=== PATIENT | male | born 1940 | race Caucasian/White ===

== ENCOUNTER 2020-05-01 08:22 | Day surgery (SDC) | payer OTHER, BC ==
--- NOTE | 2020-04-27 14:38 | RAD REPORT ---
EXAM DESCRIPTION: RAD - Chest Pa And Lat (2 Views) - 04/27/2020 2:28 pm CLINICAL HISTORY: PREop Chest pain. COMPARISON: <Comparisons> FINDINGS: The lungs are clear. The heart is normal in size. No displaced fractures. Dual lead pacer device is present. IMPRESSION: No acute or concerning finding suspected.
[2020-04-27 15:38] LABS: Absolute Lymphocytes (CBC) 1.7 K/uL (0.7-4.9); Basophils % 0.3 % (0-1.3); Hematocrit 45.6 % (39.6-49.0); Lymphocytes % 19.7 % (15.3-44.8); MPV 9.1 fL (7.6-11.3); RBC Red Blood Cell Count 5.13 M/uL (4.33-5.43)
[2020-04-27 15:51] LABS: Protime INR 1.03
[~2020-05-01 08:22] MED LIST: ATROPINE SULF 1 MG/10 ML SYR IV ONE; FENTANYL CITR 100 MCG/2 ML ONE; HEPA 1000U/500MLS 1,000 UNIT/500 ML BAG IV ONE; LIDOCAINE 1% 20 ML MDV ONE; MIDAZOLAM HCL 2 MG/2 ML INJ ONE; NA CHLORIDE 0.9% 0 ML ONE; NA CHLORIDE 0.9% 500 ML ONE
--- NOTE | 2020-05-01 08:59 | OP ---
Surgeon: Jose Edgar MD Purification Operator Helper: Mr. Gold. Procedures: Left heart catheterization, selective coronary arteriogram, selective bilateral carotid angiogram. Indication: CAD status post stent, abnormal stress test, abnormal carotid Doppler. Procedure In Detail: The patient was brought to the lab manager as an outpatient, prepped and draped in routine sterile fashion. Given Versed and fentanyl for sedation. A 6-Gambian sheath was introduced in the right common femoral artery successfully using the Seldinger technique and 10 cc of Xylocaine. JL4 catheter was used to cannulate the left main. The left main was normal with a 70% diagonal carey nosis, patent proximal LAD stent, normal circumflex and OM. He was codominant. A JR4 catheter was u sed to select the right coronary artery, which showed a 70% to 80% long proximal RCA. The RCA cathet er was also used to select the right common carotid and the left common carotid artery. The left com mon carotid artery was normal. The left external and internal carotid artery were normal. On the ri ght side, however, he had a 90% right ICA stenosis. The external carotid and the right common caroti d were normal. There were no complications. Blood Loss: 5 mL. Anesthesia: Total conscious sedation was 45 minutes. Postoperative Diagnosis: Severe coronary artery disease, severe cerebrovascular disease. Plan: For right carotid endarterectomy first, and then after that, we will stage him for an RCA sten t later. The patient had an Angio-Seal to close the right groin entry site. He will be at bedrest for 2 hours and go home and I will make arrangements for followup for his carotid surgery. SCD will be given to him. REESE/RUCHI Voice ID: [id number] Report ID: [id number]
[2020-05-01 09:06] VITALS: O2SAT 97
[2020-05-01 11:52] VITALS: BP 156/75; TEMP 97.1
== END 2020-05-01 10:10 | disposition home or self-care (01) ==
LOC: CCL 08:22
DX: I25.10 Atherosclerotic heart disease of native coronary artery without angina pectoris (principal); I65.21 Occlusion and stenosis of right carotid artery; I70.213 Atherosclerosis of native arteries of extremities with intermittent claudication, bilateral legs; E78.2 Mixed hyperlipidemia; E66.9 Obesity, unspecified; Z68.34 Body mass index [BMI] 34.0-34.9, adult; Z95.5 Presence of coronary angioplasty implant and graft; Z95.0 Presence of cardiac pacemaker; Z87.891 Personal history of nicotine dependence; Z79.82 Long term (current) use of aspirin; Z88.0 Allergy status to penicillin; Z20.822 Contact with and (suspected) exposure to COVID-19
CPT/HCPCS: 93005; 85025; 80048; 36415; 85610; 85730; 71046; 93454; 36222; U0002; C1893; C1760; J2250; J3010; J7040; J1644; J0583

== ENCOUNTER 2023-12-02 14:28 | Observation (INO) | payer OTHER, BC ==
[2023-12-02 15:08] LABS: Absolute Eosinophils 0.1 K/uL (0-0.5); Absolute Lymphocytes (CBC) 1.8 K/uL (0.7-4.9); Absolute Neutrophil 5.8 K/uL (1.8-8.0); Basophils % 0.2 % (0-1.3); Eosinophils % 0.6 % (0-4.4); Hematocrit 46.8 % (39.6-49.0); Hemoglobin 15.4 g/dL (13.6-17.9); MCH 29.9 pg (27.0-35.0); MCHC 32.9 g/dL (32.0-36.0); MCV 90.8 fL (80-100); MPV 8.2 fL (7.6-11.3); Monocytes % 11.6 % (3.3-12.3); Neutrophils % 66.6 % (41.7-73.7); Platelets 186 thou/uL (152-406); RBC Red Blood Cell Count 5.15 M/uL (4.33-5.43)
[2023-12-02 15:15] LABS: PT Prothrombin Time 12.1 SECONDS (9.4-12.5); Protime INR 1.08
[2023-12-02 15:27] LABS: Anion Gap 9.9 mEq/L (5.0-15.0); Magnesium 2.1 mg/dL (1.6-2.4); Potassium 3.9 mEq/L (3.5-5.1); Troponin High Sensitivity 23.8 pg/mL (<58.9)
--- NOTE | 2023-12-02 16:05 | RAD REPORT ---
EXAMINATION: ONE VIEW CHEST XR CLINICAL INDICATION: Male, 83 years old.,fatigue TECHNIQUE: Frontal chest projection is submitted. Examination is limited by patient positioning and t echnique. COMPARISON: 04/27/2020 FINDINGS: The lungs are well inflated and clear. No pneumothorax or sizable effusion. The heart is normal in s ize. Left chest wall pacer in place. IMPRESSION: No acute intrathoracic abnormalities.
--- NOTE | 2023-12-02 16:29 | EDPHYS ---
Physician Documentation [facility] Name: Warner Cantrell Age: 83 yrs Sex: Male : 1940 Arrival Date: 12/02/2023 Time: 14:28 Bed 3 Private MD: ED Physician Mirza Douglas HPI: 12/01 14:54 This 83 yrs old Male presents to ER via Unassigned with complaints of low pulse, ms3 Dizziness. 14:54 83-year-old male presents to the emergency department for fatigue, lightheadedness. ms3 Patient states his heart rate was found to be in the 30s at home. He denies nausea, vomiting, shortness of breath. He denies any alleviating or inciting factors. Historical: - Allergies: 15:20 PENICILLINS; iw - Home Meds: 15:14 Livalo 1 mg oral tablet daily [Active]; ranolazine 500 mg oral Tablet, Extended Release iw 12 hr 0.5 tab daily [Active]; - PSHx: 15:15 pacemaker; iw ROS: 14:54 Cardiovascular: Negative for chest pain, and palpitations. Respiratory: Negative for ms3 shortness of breath, cough, wheezing, and pleuritic chest pain, Abdomen/GI: Negative for abdominal pain, nausea, vomiting, diarrhea, and constipation, 14:54 Constitutional: Negative for fever, and chills. Skin: Negative for injury, rash, and discoloration, Exam: 14:54 Constitutional: This is a well developed, well nourished patient who is awake, alert, ms3 and in no acute distress. Head/Face: Normocephalic, atraumatic. Chest/axilla: Normal chest wall appearance and motion. Nontender with no deformity. 14:54 Cardiovascular: Rate: normal, Rhythm: irregularly irregular, Pulses: no pulse deficits are appreciated, Heart sounds: normal, normal S1and S2, 14:56 ECG was reviewed by the Attending Physician. ms3 Vital Signs: 15:06 BP 148 / 90; Pulse 86; Resp 16; Temp 98; Pulse Ox 97% on R/A; iw 16:15 Pulse 74; Resp 18; Pulse Ox 97% on R/A; Pain 0/10; ss 16:15 Pain Scale: Adult ss MDM: 14:54 Differential diagnosis: cardiac arrhythmia, Electrolyte abnormality versus myocardial ms3 infarction. 14:56 Patient medically screened. ms3 16:29 Data reviewed: vital signs, nurses notes, lab test result(s), EKG, radiologic studies, ms3 and as a result, I will admit patient. Management of patient was discussed with the following: Hospitalist: Shawn, on behalf of Dr Richmond. Independent interpretation of the following test(s) in the Emergency Department EKG: See my EKG interpretation above. Counseling: I had a detailed discussion with the patient and/or guardian regarding the historical points, exam findings, and any diagnostic results supporting the discharge/admit diagnosis, lab results, the need for further work-up and treatment in the hospital. ED course: Discussed necessity for observation with patient and his . They understand and agree with plan. Discussed case with Shawn who accepts patient on behalf of Dr. Richmond. 12/01 14:54 Order name: Basic Metabolic Panel; Complete Time: 15:28 ms3 12/01 14:54 Order name: CBC with Diff; Complete Time: 15:27 ms3 12/01 14:54 Order name: Magnesium; Complete Time: 15:28 ms3 12/01 14:54 Order name: PT-INR; Complete Time: 15:27 ms3 12/01 14:54 Order name: Troponin HS; Complete Time: 15:28 ms3 12/01 14:54 Order name: XRAY Chest (1 view); Complete Time: 16:15 ms3 12/01 14:54 Order name: Cardiac monitoring; Complete Time: 14:59 ms3 12/01 14:54 Order name: EKG - Nurse/Tech; Complete Time: 14:59 ms3 12/01 14:54 Order name: IV Saline Lock; Complete Time: 14:59 ms3 12/01 14:54 Order name: Labs collected and sent; Complete Time: 14:59 ms3 12/01 14:54 Order name: O2 Per Protocol; Complete Time: 14:59 ms3 12/01 14:54 Order name: O2 Sat Monitoring; Complete Time: 14:59 ms3 EC:56 Rate is 95 beats/min. Rhythm is irregularly irregular. Left axis deviation noted. QRS ms3 interval is prolonged. Clinical impression: Atrial paced with PVCs. Interpreted by me. Reviewed by me. Administered Medications: No medications were administered Disposition Summary: 12/02/23 16:29 Hospitalization Ordered Notes: Hospitalization Status: Observation ms3 Provider: Carlos Richmond ms3 Location: Telemetry/MedSurg (observation) ms3 Condition: Stable ms3 Problem: new ms3 Symptoms: are unchanged ms3 Bed/Room Type: Standard ms3 Room Assignment: 232(12/02/23 17:16) bd Diagnosis - Syncope Near ms3 Forms: - Medication Reconciliation Form ms3 - SBAR form ms3 - Leadership Thank You Letter ms3 Signatures: Dispatcher [employer] EDMS Sue Mercado Irene, RN RN iw Mirza Douglas DO DO ms3 Corrections: (The following items were deleted from the chart) 14:54 14:54 Chest Single View+RAD.RAD.BRZ ordered. EDMS EDMS 17:16 16:29 ms3 bd
--- NOTE | 2023-12-02 16:29 | ER ---
Nurse's Notes [facility] Name: Warner Cantrell Age: 83 yrs Sex: Male : 1940 Arrival Date: 12/02/2023 Time: 14:28 Bed 3 Private MD: Diagnosis: Syncope Near Presentation: 12/01 14:59 Coronavirus screen: At this time, the client does not indicate any symptoms associated iw with coronavirus-19. Risk Assessment: Do you want to hurt yourself or someone else? Patient reports no desire to harm self or others. Onset of symptoms was December 02, 2023. 14:59 Acuity: JAVIER 2 iw 14:59 Method Of Arrival: Wheelchair iw 14:59 Chief complaint: Patient states: dizziness, light headed started earlier today. iw 18:20 Ebola Screen: No symptoms or risks identified at this time. Initial Sepsis Screen: Does iw the patient meet any 2 criteria? No. Patient's initial sepsis screen is negative. Does the patient have a suspected source of infection? No. Patient's initial sepsis screen is negative. Historical: - Allergies: 15:20 PENICILLINS; iw - Home Meds: 15:14 Livalo 1 mg oral tablet daily [Active]; ranolazine 500 mg oral Tablet, Extended Release iw 12 hr 0.5 tab daily [Active]; - PSHx: 15:15 pacemaker; iw Screenin:21 [facility] ED Fall Risk Assessment (Adult) History of falling in the last 3 months, iw including since admission No falls in past 3 months (0 pts) Confusion or Disorientation No (0 pts) Intoxicated or Sedated No (0 pts) Impaired Gait No (0 pts) Mobility Assist Device Used Yes (1 pt) Altered Elimination No (0 pt) Score/Fall Risk Level 0 - 2 = Low Risk Oriented to surroundings. Abuse screen: Denies injuries from another. Nutritional screening: No deficits noted. Tuberculosis screening: No symptoms or risk factors identified. Assessment: 14:50 General: Appears uncomfortable, Behavior is calm, cooperative. Pain: Denies pain. iw Neuro: Level of Consciousness is awake, alert, obeys commands, Oriented to person, place, time, situation, Moves all extremities. Neuro: Reports dizziness, weakness. Cardiovascular: Patient's skin is warm and dry. Rhythm is ventricular pacer. Respiratory: Respiratory effort is even, unlabored, Respiratory pattern is regular. GI: Abdomen is round non-distended. Derm: Skin is intact, Skin is dry, Skin is pink, warm \T\ dry. Musculoskeletal: Range of motion: intact in all extremities. 15:21 Reassessment: Patient appears in no apparent distress at this time. Patient and/or iw family updated on plan of care and expected duration. Pain level reassessed. Patient is alert, oriented x 3, equal unlabored respirations, skin warm/dry/pink. 16:45 Reassessment: call to [employer] rep. will call back. iw 17:11 Reassessment: Ghada phone number [phone]. iw 17:12 Reassessment: Patient appears in no apparent distress at this time. Patient and/or iw family updated on plan of care and expected duration. Pain level reassessed. Patient is alert, oriented x 3, equal unlabored respirations, skin warm/dry/pink. 18:52 Reassessment: jam on 2nd notified that hand held interrogator is on 4th floor. iw Vital Signs: 15:06 BP 148 / 90; Pulse 86; Resp 16; Temp 98; Pulse Ox 97% on R/A; iw 16:15 Pulse 74; Resp 18; Pulse Ox 97% on R/A; Pain 0/10; ss 16:15 Pain Scale: Adult ss ED Course: 14:32 Patient arrived in ED. im 14:35 Mirza Douglas DO is Attending Physician. ms3 14:50 Susan Gruber, RN is Primary Nurse. iw 14:58 Initial lab(s) drawn, by me, sent to lab. Inserted saline lock: 20 gauge in left iw antecubital area, using aseptic technique. Blood collected. Flushed with 10 mL NS. 14:59 Triage completed. iw 15:16 Arm band placed on. iw 15:46 XRAY Chest (1 view) In Process Unspecified. EDMS 15:48 Warm blanket given. rs6 15:48 Patient has correct armband on for positive identification. Provided Education on: iw labs. Client placed on continuous cardiac and pulse oximetry monitoring. NIBP monitoring applied. shelter monitor on. 16:28 Carlos Richmond MD is Hospitalizing Provider. ms3 18:19 No provider procedures requiring assistance completed. Patient admitted, IV remains in iw place. Administered Medications: No medications were administered Medication: 15:48 VIS not applicable for this client. iw Outcome: 16:29 Decision to Hospitalize by Provider. ms3 18:19 Admitted to Med/surg accompanied by tech, via stretcher, room 232, iw 18:19 Condition: good 18:19 Discharge instructions given to patient, Instructed on the need for admit, Demonstrated understanding of instructions, 18:20 Patient left the ED. iw Signatures: Dispatcher [employer] Susan Gallegos, BHAVYA RN Marielle Burch RN RN Mirza Douglas, DO ms3 Allen, [facility] [employer] [id number]
--- NOTE | 2023-12-02 17:27 | P.HP ---
Certification for Inpatient Patient admitted to: Observation With expected LOS: <2 Midnights Patient will require the following post-hospital care: None Practitioner: I am a practitioner with admitting privileges, knowledge of patient current condition, hospital course, and medical plan of care. Services: Services provided to patient in accordance with Admission requirements found in Title 42 Section 412.3 of the Code of Federal Regulations Patient History Date of Service: 12/02/23 Reason for admission: Dizziness, bradycardia History of Present Illness: 83-year-old male history of CAD with previous stent, pacemaker placement, hyperlipidemia presents the emergency department with chief complaint of dizziness, near syncope, low heart rate. He reports for 3 hours prior to arrival to the hospital he was having significant lightheadedness and when checked with a pulse oximeter his heart rate was in the 30s. Upon arrival to the ED when utilizing the pulse ox his heart rate was also in the 30s, on EKG he was having very frequent PVCs. Labs were unremarkable, chest x-ray was negative for acute any acute findings. During his stay in the emergency department his PVCs frequency significantly decreased and he remained in a paced rhythm, symptoms also improved. It is thought that he was likely having lots of PVCs that were not perfusing. ED discussed case with cardiology who recommends admission under observation/telemetry. Will also have Nelson evaluate pacemaker. Allergies Penicillins Allergy (Verified 04/27/20 14:18) Rash Home Medications: Aspirin Chewable [Aspirin Chewable*] 81 mg PO DAILY 03/22/14 Pitavastatin Calcium [Livalo] 2 mg PO DAILY 03/22/14 Ranolazine [Ranexa] 500 mg PO BID #60 tab.er.12h 08/18/14 - Past Medical/Surgical History Diabetic: No -: high cholesterol -: PVD -: pacemaker -: cardiac cath with stent Psychosocial/ Personal History: Lives at home with his - Family History Father -: Cancer - Social History Alcohol use: Yes CD- Drugs: No Caffeine use: Yes Place of Residence: Home Review of Systems 10-point ROS is otherwise unremarkable Cardiovascular: Light Headedness Physical Examination - Physical Exam General: Alert, In no apparent distress HEENT: Atraumatic, PERRLA, Mucous membr. moist/pink Neck: Supple, 2+ carotid pulse no bruit, No LAD Respiratory: Clear to auscultation bilaterally, Normal air movement Cardiovascular: Regular rate/rhythm, Normal S1 S2 Gastrointestinal: Normal bowel sounds, No tenderness Musculoskeletal: No tenderness Integumentary: No rashes Neurological: Normal speech, Normal strength at 5/5 x4 extr, Normal tone, Normal affect - Studies Laboratory Data (last 24 hrs) 12/02/23 12/02/23 12/02/23 14:58 14:58 14:58 WBC 8.80 Hgb 15.4 Hct 46.8 Plt Count 186 PT 12.1 INR 1.08 Sodium 141 Potassium 3.9 BUN 18 Creatinine 1.15 Glucose 142 H Magnesium 2.1 Assessment and Plan - Plan Assessment: Dizziness, symptomatic bradycardia/frequent PVCs Pacemaker in situ History of CAD with previous stent Hyperlipidemia Plan: Dizziness, symptomatic bradycardia/frequent PVCs Pacemaker in situ Upon arrival patient with heart rate on pulse oximeter in the 30s with dizziness/lightheadedness On arrival EKG shows frequent PVCs which were likely not perfusing Now patient is in paced rhythm, symptoms have resolved electrolytes with normal limits Electrolytes within normal limits, initial troponin negative will admit, monitor on telemetry, contact [facility] consult History of CAD with previous stent Hyperlipidemia Continue home medications when verified DVT PPX:Lovenox Code status:Full Discharge Plan: Home Plan to discharge in: 24 Hours - Advance Directives Does patient have a Living Will: No Does patient have a Durable POA for Healthcare: No - Code Status/Comfort Care Code Status Assessed: Yes (Full code) Critical Care: No Time Spent Managing Pts Care (In Minutes): 61
[2023-12-02 19:56] VITALS: BMI 31.9
[2023-12-03 05:26] LABS: Absolute Eosinophils 0.1 K/uL (0-0.5); Absolute Lymphocytes (CBC) 2.1 K/uL (0.7-4.9); Absolute Monocytes 0.9 K/uL (0.1-1.3); Absolute Neutrophil 4.9 K/uL (1.8-8.0); Basophils % 0.6 % (0-1.3); Eosinophils % 1.5 % (0-4.4); Hemoglobin 14.1 g/dL (13.6-17.9); Lymphocytes % 25.7 % (15.3-44.8); MCH 30.6 pg (27.0-35.0); MCHC 33.5 g/dL (32.0-36.0); MCV 91.3 fL (80-100); MPV 8.5 fL (7.6-11.3); Monocytes % 11.5 % (3.3-12.3); Neutrophils % 60.7 % (41.7-73.7); Platelets 162 thou/uL (152-406); Red Cell Distribution Width 13.8 % (12.1-15.2)
[2023-12-03 05:48] LABS: Magnesium 1.9 mg/dL (1.6-2.4); Thyroid Stimulating Hormone 1.75 uIU/mL (0.358-3.740); Troponin High Sensitivity 25.2 pg/mL (<58.9)
--- NOTE | 2023-12-03 08:39 | P.CNS ---
Date of Consult: 12/03/23 Chief Complaint: Dizziness, bradycardia History of Present Illness: Patient with PMH of CAD, PCI, Bradycardia s/p PM, presented with dizziness, bradycardia, denies chest pain, no SOB, no palpitations, no syncope. Allergies Penicillins Allergy (Verified 04/27/20 14:18) Rash Home medications list reviewed: Yes Home Medications: Pitavastatin Calcium [Livalo] 1 mg PO DAILY 12/02/23 Ranolazine [Ranolazine ER] 250 ng PO DAILY 12/02/23 - Past Medical/Surgical History Diabetic: No -: high cholesterol -: PVD -: pacemaker -: cardiac cath with stent -: coratid artery Psychosocial/ Personal History: Lives at home with his - Family History Father Medical History: Cancer - Social History Alcohol use: Yes CD- Drugs: No Caffeine use: Yes Place of Residence: Home Review of Systems 10-point ROS is otherwise unremarkable Physical Examination Temp Pulse Resp BP Pulse Ox 97.7 F 84 17 138/67 94 12/03/23 04:00 12/03/23 04:00 12/03/23 04:00 12/03/23 04:00 12/03/23 04:00 General: Alert, In no apparent distress HEENT: Atraumatic, PERRLA, Mucous membr. moist/pink, EOMI, Sclerae nonicteric Neck: Supple, 2+ carotid pulse no bruit, No LAD, Without JVD or thyroid abnormality Respiratory: Clear to auscultation bilaterally, Normal air movement Cardiovascular: Regular rate/rhythm, Normal S1 S2 Gastrointestinal: Normal bowel sounds, No tenderness Musculoskeletal: No tenderness Integumentary: No rashes Neurological: Normal gait, Normal speech, Normal tone, Normal affect Lymphatics: No axilla or inguinal lymphadenopathy Laboratory Data (last 24 hrs) 12/02/23 12/02/23 12/02/23 14:58 14:58 14:58 WBC 8.80 Hgb 15.4 Hct 46.8 Plt Count 186 PT 12.1 INR 1.08 Sodium 141 Potassium 3.9 BUN 18 Creatinine 1.15 Glucose 142 H Magnesium 2.1 - Problems (1) NSVT (nonsustained ventricular tachycardia) Current Visit: Yes Status: Acute Plan: Patient with history of CAD and PCI in the past. Tele shows run of NSVT and frequent PVCs Coronary angiogram, keep NPO start Amiodarone 200 mg po BID ASA 81 mg daily
[2023-12-03] MEDS ORDERED: FENTANYL CITR 100 MCG/2 ML ONE (08:54)
[2023-12-03] MEDS ORDERED: MIDAZOLAM HCL 2 MG/2 ML INJ ONE (08:54)
[2023-12-03] MEDS: ENOXAPARIN 40 MG/0.4 ML SQ SCH (09:00)
--- NOTE | 2023-12-03 09:26 | P.PN ---
Date of Service: 12/03/23 Subjective: Had NSVT this morning Seen by cardiology Plan for coronary angiogram today around noon ROS: 10 point ROS as noted above, otherwise negative Physical exam GEN: Alert, oriented, NAD HEENT: Normal conjunctiva, sclera anicteric CV: Regular rate and rhythm, no edema Pulm: Nonlabored respirations on room air ABD: Soft, nontender, nondistended MSK: No joint tenderness Integumentary: No rashes Neuro: Normal speech, normal affect Vitals reviewed Assessment: Dizziness, symptomatic bradycardia/frequent PVCs and NSVT Pacemaker in situ History of CAD with previous stent Hyperlipidemia Plan: Dizziness, symptomatic bradycardia/frequent PVCs and NSVT Pacemaker in situ Upon arrival patient with heart rate on pulse oximeter in the 30s with dizziness/lightheadedness On arrival EKG shows frequent PVCs which were likely not perfusing Now patient is in paced rhythm, symptoms have resolved electrolytes with normal limits Electrolytes within normal limits, trop negative x3 NSVT this AM Will start amio and have coronary angiogram today per cardiology History of CAD with previous stent Hyperlipidemia Continue home medications when verified Plan for coronary angiogram today DVT PPX:Lovenox Code status:Full Discharge Plan: Home Plan to discharge in: 24 Hours Time Spent Managing Pts Care (In Minutes): 35
[2023-12-03] MEDS: AMIODARONE HCL 200 MG TAB PO SCH (09:57)
[2023-12-03] MEDS ORDERED: HEPA 1000U/500MLS 2,000 UNIT/1,000 ML BAG IV ONE (11:05)
[2023-12-03] MEDS ORDERED: LIDOCAINE 1% 20 ML MDV ONE (11:06)
[2023-12-03] MEDS ORDERED: NITROGLYCERIN/D5W 50 MG/250 ML BTL IV ONE (11:06)
[2023-12-03] MEDS ORDERED: NA CHLORIDE 0.9% 500 ML ONE (11:39)
[2023-12-03] MEDS ORDERED: HEPARIN 5000 UNIT/ML 1 ML VIAL ONE (12:05)
[2023-12-03 14:33] VITALS: O2SAT 98
[2023-12-03 15:48] VITALS: BP 160/81; TEMP 97.3
--- NOTE | 2023-12-03 16:21 | P.DS ---
Admission Date: 12/02/23 Discharge Date: 12/03/23 Disposition: ROUTINE DISCHARGE Discharge Condition: GOOD Reason for Admission: Dizziness, bradycardia Consultations: Cardiology-Dr. Bonilla Procedures: Coronary angiogram 12/02-multivessel CAD Brief History of Present Illness: 83-year-old male history of CAD with previous stent, pacemaker placement, hyperlipidemia presents the emergency department with chief complaint of dizziness, near syncope, low heart rate. He reports for 3 hours prior to arrival to the hospital he was having significant lightheadedness and when checked with a pulse oximeter his heart rate was in the 30s. Upon arrival to the ED when utilizing the pulse ox his heart rate was also in the 30s, on EKG he was having very frequent PVCs. Labs were unremarkable, chest x-ray was negative for acute any acute findings. During his stay in the emergency department his PVCs frequency significantly decreased and he remained in a paced rhythm, symptoms also improved. It is thought that he was likely having lots of PVCs that were not perfusing. ED discussed case with cardiology who recommends admission under observation/telemetry. Will also have [facility] evaluate pacemaker. Hospital Course: Assessment: Multivessel CAD Dizziness, symptomatic bradycardia/frequent PVCs and NSVT Pacemaker in situ History of CAD with previous stent Hyperlipidemia Patient was admitted to the hospital for lightheadedness, bradycardia. He has a pacemaker in place with last battery change in 2021. He was at home and became lightheaded, his checked his heart rate with a pulse ox and found it to be around 30 and for that reason he came to the emergency department. Upon arrival to the ED patient's heart rate was measured on pulse ox and was 29. EKG was performed which showed paced rhythm with frequent/second of PVCs. That was that these PVCs may not be perfusing beats. Subsequently the patient had a run of nonsustained VT this morning and was seen by cardiology who recommended coronary angiogram. Coronary angiogram was performed today on 12/02 and he was found to have multivessel CAD. See cath report for further details. It is recommended that patient be evaluated outpatient for coronary artery bypass grafting. Cardiology will reach out to patient/family for further planning. Given the frequent PVCs and NSVT this morning patient was initiated on amiodarone 200 mg by mouth twice daily which she will continue as an outpatient. Prescription sent to [facility] [place]. Other home medications as previously prescribed. Follow-up with your primary care doctor in 1 to 2 weeks Follow-up with cardiologyDr. Bonilla-if they have not called you call them back in 1 week Vital Signs/Physical Exam: Temp Pulse Resp BP Pulse Ox 97.3 F 68 16 160/81 H 96 12/03/23 16:09 12/03/23 16:09 12/03/23 16:09 12/03/23 16:09 12/03/23 16:09 General: Alert, In no apparent distress, Oriented x3 HEENT: Atraumatic, PERRLA Neck: Supple, JVD not distended Respiratory: Clear to auscultation bilaterally, Normal air movement Cardiovascular: Regular rate/rhythm, Normal S1 S2 Gastrointestinal: Normal bowel sounds, No tenderness Musculoskeletal: No tenderness Integumentary: No rashes Neurological: Normal speech, Normal tone Laboratory Data at Discharge: WBC 8.10 thou/uL (4.3-10.9) 12/03/23 05:00 Hgb 14.1 g/dL (13.6-17.9) D 12/03/23 05:00 Hct 42.0 % (39.6-49.0) 12/03/23 05:00 Plt Count 162 thou/uL (152-406) 12/03/23 05:00 PT 12.1 SECONDS (9.4-12.5) 12/02/23 14:58 INR 1.08 12/02/23 14:58 Sodium 141 mEq/L (136-145) 12/03/23 05:00 Potassium 4.0 mEq/L (3.5-5.1) 12/03/23 05:00 BUN 15 mg/dL (7-18) 12/03/23 05:00 Creatinine 1.12 mg/dL (0.70-1.30) 12/03/23 05:00 Glucose 114 mg/dL (74-106) H 12/03/23 05:00 Magnesium 1.9 mg/dL (1.6-2.4) 12/03/23 05:00 Home Medications: Pitavastatin Calcium [Livalo] 1 mg PO DAILY 12/02/23 Ranolazine [Ranolazine ER] 250 ng PO DAILY 12/02/23 Amiodarone HCl [Cordarone*] 200 mg PO BID #60 tab 12/03/23 New Medications: Amiodarone HCl [Cordarone*] 200 mg PO BID #60 tab Physician Discharge Instructions: Patient was admitted to the hospital for lightheadedness, bradycardia. He has a pacemaker in place with last battery change in 2021. He was at home and became lightheaded, his checked his heart rate with a pulse ox and found it to be around 30 and for that reason he came to the emergency department. Upon arrival to the ED patient's heart rate was measured on pulse ox and was 29. EKG was performed which showed paced rhythm with frequent/second of PVCs. That was that these PVCs may not be perfusing beats. Subsequently the patient had a run of nonsustained VT this morning and was seen by cardiology who recommended coronary angiogram. Coronary angiogram was performed today on 12/02 and he was found to have multivessel CAD. See cath report for further details. It is recommended that patient be evaluated outpatient for coronary artery bypass grafting. Cardiology will reach out to patient/family for further planning. Given the frequent PVCs and NSVT this morning patient was initiated on amiodarone 200 mg by mouth twice daily which she will continue as an outpatient. Prescription sent to [facility] [place]. Other home medications as previously prescribed. Follow-up with your primary care doctor in 1 to 2 weeks Follow-up with cardiologyDr. Bonilla-if they have not called you call them back in 1 week Diet: AHA Activity: Ad sebas Followup: Norberto Bonilla MD [ACTIVE - CAN ADMIT] - 1-2 Weeks Kemar Kaplan DO [Primary Care Provider] - 1-2 Weeks Time spent managing pt's care (in minutes): 41
--- NOTE | 2023-12-04 16:59 | EKG ---
Test Date: 2023-12-02 Test Time: 14:47:59 Health Commissioner: BELINDA MEASUREMENT RESULTS: Intervals: Rate: 90 RI: 140 QRSD: 200 QT: 452 QTc: 552 [place]: P: 69 RI: 140 QRS: -81 T: 94 INTERPRETIVE STATEMENTS: Atrial-sensed ventricular-paced rhythm with frequent premature ventricular complexes Abnormal ECG Compared to ECG 04/27/2020 14:05:14 Ventricular premature complex(es) now present Electronically Signed On 12-04-23 16:51:57 CDT by Trae Landa
--- NOTE | 2023-12-04 16:59 | EKG ---
Test Date: 2023-12-02 Test Time: 14:49:03 Metal Model Maker: BELINDA MEASUREMENT RESULTS: Intervals: Rate: 95 [place]: 138 QRSD: 204 QT: 452 QTc: 568 [place]: P: 77 [place]: 138 QRS: -83 T: 96 INTERPRETIVE STATEMENTS: Atrial-sensed ventricular-paced rhythm with frequent premature ventricular complexes Abnormal ECG Compared to ECG 12/02/2023 14:47:59 No significant changes Electronically Signed On 12-04-23 16:51:56 CDT by Trae Landa
--- NOTE | 2023-12-06 01:56 | OP ---
Date of Procedure: 12/03/2023 Surgeon: Norberto Bonilla Procedures Performed: 1.Left heart catheterization. 2.Selective coronary angiogram. Indication For Procedure: Unstable angina. Complications: None. Estimated Blood Loss: Less than 50 cc. Access: Right radial, closed by TR band. Sedation Time: 20 minutes with 1 of Versed and 25 of fentanyl. Description Of Procedure: After risks, benefits, and alternatives were explained to the patient, the patient agreed to proceed with procedure and signed informed consent. The patient was brought back to the laboratory associate, prepped and draped in a sterile fashion. Time-out was performed. Sedation was admi nistered. Next, right radial access was obtained. Cushing 4 catheter was advanced over J-wire to the LV cavity. LVEDP was obtained. Pullback did not show any gradient. Same catheter was used for yaritza ctive angiogram of the left and right coronary systems. At the end of the procedure, catheter was re moved over a J-wire. Sheath was removed. TR band was applied. Hemostasis achieved. The patient wa s moved back to recovery in stable condition. Findings: 1.Left main, distal 70% calcified disease. 2.LAD, proximal to mid stent patent, then mid 70% disease and mild luminal irregularities. 3.Diagonal proximal, 80% disease and mild luminal irregularities. 4.Left circ/OM1, mild luminal irregularities. 5.RCA, large, dominant, mid diffuse heavily calcified 80% to 90% disease, then mild luminal irregula rities with a distal 60% disease. 6.RPDA, mild luminal irregularities. 7.LVEDP 11 mmHg. Assessment And Plan: Significant distal left main disease with significant mid LAD diagonal and mid RCA disease. The plan will be to consult CT Surgery to evaluate for CABG as an outpatient. MONA/RUCHI Voice ID: [id number] Report ID: [id number]
== END 2023-12-03 16:52 | disposition home or self-care (01) ==
LOC: ER 14:28 → ERHOLD 17:05 → 2ND 17:33
PROVIDERS: ADMIT Hospitalist; ATTEND Hospitalist
PROC: 4A023N7 Measurement of Cardiac Sampling and Pressure, Left Heart, Percutaneous Approach (ICD-10-PCS; principal; 2023-12-03)
PROC: B2111ZZ Fluoroscopy of Multiple Coronary Arteries using Low Osmolar Contrast (ICD-10-PCS; 2023-12-03)
PROC: B2151ZZ Fluoroscopy of Left Heart using Low Osmolar Contrast (ICD-10-PCS; 2023-12-03)
DX: I25.110 Atherosclerotic heart disease of native coronary artery with unstable angina pectoris (principal); I47.20 Ventricular tachycardia, unspecified; R00.1 Bradycardia, unspecified; E78.5 Hyperlipidemia, unspecified; E78.00 Pure hypercholesterolemia, unspecified; I49.3 Ventricular premature depolarization; Z95.5 Presence of coronary angioplasty implant and graft; Z95.0 Presence of cardiac pacemaker; Z88.0 Allergy status to penicillin; Z80.9 Family history of malignant neoplasm, unspecified
CPT/HCPCS: 93005 ×2; 85025 ×2; 80048 ×2; 36415; 83735 ×2; 85610; 82947; 84443; 84484 ×3; 84439; 71045; 93458; 76937; 99285; C1893; Q9966; J1644; J2001; J2250; J3010; J7040; G0378 ×3; 99152; 99153

== ENCOUNTER 2024-04-26 10:43 | Day surgery (SDC) | payer OTHER, BC ==
[2024-04-26] MEDS ORDERED: LIDOCAINE 2% MPF 5 ML VIAL ONE (11:01)
[2024-04-26] MEDS ORDERED: FENTANYL CITR 100 MCG/2 ML ONE (11:01)
[2024-04-26] MEDS ORDERED: propofoL 200 MG/20 ML VIAL IV ONE (11:01)
[2024-04-26] MEDS ORDERED: ONDANSETRON 4 MG/2 ML VIAL ONE (11:01)
[2024-04-26] MEDS: Ringers Lactate 1,000 ML IV ONE (11:40)
[2024-04-26 12:01] LABS: PT Prothrombin Time 13.4 SECONDS (10.0-13.0); PTT, Activated Partial Thromb 32.1 SECONDS (24.3-36.9); Protime INR 1.18
[2024-04-26 12:12] LABS: Absolute Eosinophils 0.1 K/uL (0-0.5); Absolute Lymphocytes (CBC) 1.6 K/uL (0.7-4.9); Absolute Monocytes 0.8 K/uL (0.1-1.3); Absolute Neutrophil 5.9 K/uL (1.8-8.0); Basophils % 0.5 % (0-1.3); Hemoglobin 13.6 g/dL (13.6-17.9); Lymphocytes % 18.4 % (15.3-44.8); MCH 28.4 pg (27.0-35.0); MCHC 34.1 g/dL (32.0-36.0); MCV 83.2 fL (80-100); MPV 8.7 fL (7.6-11.3); Monocytes % 9.9 % (3.3-12.3); Neutrophils % 70.2 % (41.7-73.7); Platelets 201 thou/uL (152-406); RBC Red Blood Cell Count 4.81 M/uL (4.33-5.43); Red Cell Distribution Width 15.3 % (12.1-15.2)
[2024-04-26] MEDS ORDERED: EPHEDRINE SULF 50 MG/ML VIAL ONE (12:23)
[2024-04-26] MEDS ORDERED: dexAMETHasone 4 MG/ML VIAL ONE (12:24)
[2024-04-26] MEDS: Ciprofloxacin 200mg IV 400 MG/200 ML IV.SOLN. IV ONE (12:30)
[2024-04-26] MEDS: BUPIVACAINE 0.5% PF 10 ML VIAL ONE (12:43)
--- NOTE | 2024-04-26 13:07 | P.BOP ---
Preoperative diagnosis: right upper back shoe cutter Postoperative diagnosis: same Primary procedure: Excisional debridement right upper back shoe cutter 3x3cm Estimated blood loss: <10cc Specimen: mass Findings: mass subQ Anesthesia: General Complications: None Transferred to: Recovery Room Condition: Good
[2024-04-26 14:52] VITALS: BP 134/59; TEMP 97.1; O2SAT 98
--- NOTE | 2024-04-28 20:06 | OP ---
Date of Procedure: 04/26/2024 Surgeon: Haresh Pina MD Preoperative Diagnosis: Right upper manager background subcutaneous mass. Postoperative Diagnosis: Right upper manager background subcutaneous mass. Procedure: Excisional biopsy of an inflamed subcutaneous mass. Anesthesia: General plus local. Complications: None. Indications: This is a case of an 83-year-old patient comes to us with an infected subcutaneous mass . Benefits, alternatives, and risks of excisional biopsy was fully explained, which include, but not limited to infection, bleeding, damage to adjacent structures, anesthesia complication, nonhealing w ound, LA, and even . He also understands this may not relieve symptoms, he might need more than one surgical intervention. He understood and signed a consent. The area of concern was marked by erin connors and the patient in the holding room. Description Of Procedure: The patient was brought to the operating room, placed in supine position. Anesthesia was induced without complication. The patient was placed in lateral decubitus position. The back area was prepped and draped in a sterile fashion. Local anesthesia was applied after time- out. Then, a wedge incision was made in the skin. We removed the mass all the way down to subcutane ous tissue. Hemostasis was obtained. Irrigation was done and we proceeded to approximate the area s deanna we did not see any pus in that region. The area was covered with sterile dressings and patient was sent to recovery in stable condition. Sponge count and instrument counts were correct. BENJAMIN/RUCHI Voice ID: [id number] Report ID: [id number]
== END 2024-04-26 14:40 | disposition home or self-care (01) ==
LOC: OR 10:43
PROVIDERS: ATTEND Surgery
PROC: 0JB70ZZ Excision of Back Subcutaneous Tissue and Fascia, Open Approach (ICD-10-PCS; principal; 2024-04-26 12:19)
DX: L72.0 Epidermal cyst (principal)
CPT/HCPCS: 87070; 85025; 80048; 36415; 87205; 85610; 88304; 85730; 87075; 11403; J2704; J1100; J2003; J3010; J0744; J2405; J7120